=== PATIENT | male | born 1975 | race Two or more races ===

== ENCOUNTER 2020-02-06 02:57 | Emergency (ER) | payer OTHER ==
[~2020-02-06] VITALS: Ht 170.2 cm; Wt 93.0 kg
[2020-02-06] MEDS ORDERED: ONDANSETRON ODT 4 MG TAB PO ONE (03:15)
[2020-02-06 03:36] LABS: Basophils # (auto) 0.1 10 ^3/uL (0-0.2); Eosinophils # (auto) 0.2 10 ^3/uL (0-0.8); Eosinophils % (auto) 2.7 % (0.0-7.0); Hematocrit 47.1 % (41.0-53.0); Hemoglobin 16.1 g/dL (13.5-17.5); Lymphocytes # (auto) 2.9 10 ^3/uL (0.4-5.4); Lymphocytes % (auto) 32.4 % (10.0-50.0); Mean Corpuscular Hemoglobin 28.6 pg (28.0-32.0); Mean Corpuscular Hgb Conc. 34.2 g/dL (32.0-36.0); Mean Corpuscular Volume 83.7 fL (80.0-100.0); Monocytes # (auto) 0.7 10 ^3/uL (0-1.3); Monocytes % (auto) 7.6 % (0.0-12.0); Neutrophils % (auto) 56.3 % (37.0-80.0); Nucleated Red Blood Cells % 0.2 %; Platelet Count (auto) 250 10^3/uL (140-450); Red Blood Cells 5.63 10^6/uL (4.5-5.90); Red Cell Distribution Width 13.6 % (11.8-14.3); White Blood Cell 8.9 10^3/uL (4.4-10.8)
[2020-02-06 03:52] LABS: Albumin 3.9 g/dL (3.4-5.0); Calcium 8.5 mg/dL (8.5-10.1); Potassium 3.8 mmol/L (3.5-5.1)
[2020-02-06 03:56] VITALS: BP 130/82
[2020-02-06 03:56] LABS: Bilirubin, Total 0.4 mg/dL (0.2-1.0); Total Protein 7.4 g/dL (6.4-8.2)
[2020-02-06] MEDS ORDERED: methylPREDNISolone SOD SUCC 125 MG/2 ML VL IM ONE (04:15)
[2020-02-06] MEDS ORDERED: KETOROLAC TROMETH 60MG/2ML VIAL IM ONE (04:15)
[2020-02-06] MEDS ORDERED: cefTRIAXone SOD 1,000 MG VL IM ONE (04:15)
== END 2020-02-06 05:41 | disposition home or self-care (01) ==
LOC: ER 03:03
DX: N20.0 Calculus of kidney (principal)
CPT/HCPCS: 36415; 74176; 80053; 83690; 85025; 96372; 99284; J0696; J1885; J2930; Q0162